=== PATIENT | male | born 1970 | race Caucasian/White ===

== ENCOUNTER 2017-03-16 00:37 | Emergency (ER) | payer MEDICAID ==
[~2017-03-16] VITALS: Ht 190.5 cm; Wt 90.7 kg
[2017-03-16] MEDS ORDERED: KETOROLAC TROMETHAMINE 30 MG INJ IVP ONE (01:15)
[2017-03-16] MEDS ORDERED: IV NORMAL SALINE 1000 ML BAG IV ONE (01:15)
[2017-03-16] MEDS ORDERED: HYDROMORPHONE 1 MG/1 ML DISP.SYRIN IV ONE (01:15)
[2017-03-16] MEDS ORDERED: ONDANSETRON 4 MG/2 ML VIAL IV ONE (01:15)
[2017-03-16 01:27] LABS: BASOPHILS # (AUTO) 0.1 K/uL (0.0-8.0); BASOPHILS % (AUTO) 0.8 % (0.0-2.0); EOSINOPHILS # (AUTO) 0.1 K/uL (0.0-0.7); EOSINOPHILS % (AUTO) 1.2 % (0.0-7.0); HEMATOCRIT 45.9 % (40-50); HEMOGLOBIN 15.5 G/DL (14.0-18.0); LYMPHOCYTES # (AUTO) 2.3 K/UL (0.8-4.8); LYMPHOCYTES % (AUTO) 20.7 % (20.5-51.5); MEAN CORPUSCULAR HEMOGLOBIN 30.1 UUG (27.0-31.0); MEAN CORPUSCULAR HGB CONC 34 g/dL (32.0-37.0); MEAN CORPUSCULAR VOLUME 89.3 FL (82.0-92.0); MONOCYTES # (AUTO) 1.1 K/UL (0.1-1.30); MONOCYTES % (AUTO) 10.2 % (0.0-11.0); NEUTROPHILS # (AUTO) 7.4 K/UL (1.8-8.9); NEUTROPHILS % (AUTO) 67.1 % (38.5-71.5); PLATELET COUNT (AUTO) 259 K/UL (150-450); RED BLOOD CELL COUNT(AUTO) 5.14 MIL/UL (4.7-6.1)
[2017-03-16] MEDS ORDERED: HYDROMORPHONE 1 MG/1 ML DISP.SYRIN ONE (01:30)
[2017-03-16] MEDS ORDERED: KETOROLAC TROMETHAMINE 30 MG INJ ONE (01:30)
[2017-03-16] MEDS ORDERED: ONDANSETRON 4 MG/2 ML VIAL ONE (01:30)
[2017-03-16 01:32] LABS: CREATININE 1.3 mg/dL (0.6-1.3); POTASSIUM 3.5 mmol/L (3.5-5.1)
[2017-03-16 01:38] LABS: BILIRUBIN,DIRECT 0.1 mg/dL (0.0-0.2); BILIRUBIN,TOTAL 0.4 mg/dL (0.2-1.0); TOTAL PROTEIN, SERUM 8.5 g/dL (6.4-8.2)
--- NOTE | 2017-03-16 02:00 | NUR ---
Patient to Radiology for CT scan via gurney.
--- NOTE | 2017-03-16 02:13 | NUR ---
Patient returned from Radiology, resting comfortably in bed with eyes closed.
--- NOTE | 2017-03-16 03:21 | NUR ---
Patient is resting comfortably in bed with eyes closed
--- NOTE | 2017-03-16 04:44 | NUR ---
Patient is resting comfortably in bed with eyes closed
--- NOTE | 2017-03-16 06:15 | NUR ---
Patient given written and verbal discharge instructions. Patient verbalizes understanding of instructions. Patient is ambulatory with steady gait. Refuses offer of fci placement. Patient given list of available shelters in surrounding area.
[2017-03-16 06:16] VITALS: BP 134/84
== END 2017-03-16 06:16 | disposition home or self-care (01) ==
LOC: ER 00:38
DX: N20.0 Calculus of kidney (principal)
CPT/HCPCS: 36415; 83690; 85025; A4663; J1170; J1885; J2405; J7030

== ENCOUNTER 2017-12-04 13:36 | Emergency (ER) | payer MEDICAID ==
[~2017-12-04] VITALS: Ht 190.5 cm; Wt 90.7 kg
[2017-12-04] MEDS ORDERED: ONDANSETRON IV *ER 4 MG/2 ML VIAL IV ONE (14:00)
[2017-12-04] MEDS ORDERED: IV NS 1000 ML 1,000 ML IV ONE (14:00)
[2017-12-04] MEDS ORDERED: PANTOPRAZOLE SODIUM IV 40 MG in IV DEXTROSE 5% 100 ML IV ONE (14:00)
[2017-12-04] MEDS ORDERED: PANTOPRAZOLE SODIUM 40 MG VIAL ONE (14:07)
[2017-12-04] MEDS ORDERED: ONDANSETRON 4 MG/2 ML VIAL ONE (14:07)
--- NOTE | 2017-12-04 14:10 | NUR ---
Proposal Coordinator assumes care- patient tito AOx4, calm & breathing easily, NAD. Blood was drawn by the lab assistant oceanographer, pending U/S scan at this time. Addendum: 12/04/17 at 1419 by SAY Patient is not for U/S but rather for abdominal series x-ray instead per MD morrissey
[2017-12-04 14:17] LABS: BASOPHILS % (AUTO) 0.5 % (0.0-2.0); EOSINOPHILS # (AUTO) 0.2 K/uL (0.0-0.7); EOSINOPHILS % (AUTO) 2.7 % (0.0-7.0); HEMATOCRIT 44.3 % (36.7-47.1); HEMOGLOBIN 15.1 g/dL (12.5-16.3); LYMPHOCYTES # (AUTO) 2.4 K/uL (20.0-40.0); LYMPHOCYTES % (AUTO) 29.9 % (20.5-51.5); MEAN CORPUSCULAR HEMOGLOBIN 30.1 uug (23.8-33.4); MEAN CORPUSCULAR HGB CONC 34 g/dL (32.5-36.3); MEAN CORPUSCULAR VOLUME 88.4 fL (73.0-96.2); MONOCYTES # (AUTO) 1.1 K/uL (2.0-10.0); MONOCYTES % (AUTO) 13.4 % (0.0-11.0); NEUTROPHILS # (AUTO) 4.2 K/uL (1.8-8.9); NEUTROPHILS % (AUTO) 53.5 % (38.5-71.5); PLATELET COUNT (AUTO) 241 K/uL (152-348); RED BLOOD CELL COUNT(AUTO) 5.01 MIL/uL (4.06-5.63); WHITE BLOOD COUNT (AUTO) 7.9 K/uL (3.6-10.2)
[2017-12-04 14:21] LABS: POTASSIUM 3.9 mmol/L (3.5-5.1)
[2017-12-04 14:27] LABS: BILIRUBIN,TOTAL 0.5 mg/dL (0.2-1.0); TOTAL PROTEIN, SERUM 7.4 g/dL (6.4-8.2)
--- NOTE | 2017-12-04 15:41 | NUR ---
biofuels plant construction worker Dagoberto is here (with her global marketing intern) & is now evaluating the patient.
--- NOTE | 2017-12-04 16:27 | NUR ---
MODESTA informed by ED STEPHANIE Huerta that a SW consultation has been requested by Dr. Howell. SW arrived to ED, along with SW internet media planner Zandra. SW and SW internet media planner consulted with STEPHANIE Huerta and Dr. Howell. SW and SW internet media planner then met with patient. SW introduced herself and the SW internet media planner, and asked patient if he was fine with meeting with both the SW and the SW internet media planner. Patient was receptive to this SW, and expressed agreement for both SW and SW internet media planner to be present during the interview. SW assessed patient's current needs. Patient is a 46 year old male who stated that he has been homeless for the past year, and living at [facility]. 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 Patient reported wanting resources on drug detox programs. 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 SW also assessed patient's needs for homeless resources such as shelters, places for meals and showers, food matos, clothing resources. Patient declined resources for shelters, meals, food matos, and showers, however requested information on local [facility] locations for clothing resources. SW provided the following resources to patient: 1) [facility], [address] [place] [address], 2) [facility], [address], [address], [place] [address], 3) [facility], [address] [place] [address], 4) [facility], [address] [place], [address], Patient was receptive to these resources and thanked SW for the information. A copy of the resources provided were filed in patient's ED chart. Dr. Howell informed that the requested resources were provided to patient.
--- NOTE | 2017-12-04 16:33 | NUR ---
IV removed. Catheter intact and site benign. Pressure and 4x4 gauze applied to site. No bleeding noted. Patient discharged to home in stable conditon. Written and verbal after care instructions given to patient. Patient verbalizes understanding of instructions. Patient is ambulatory with steady gait. Refuses offer of residential placement. Patient given list of available shelters in surrounding area.
[2018-02-08] MEDS ORDERED: CEPH-570 PO (11:18)
[2018-02-08] MEDS ORDERED: HYDR-548 PO (11:18)
== END 2017-12-04 16:36 | disposition home or self-care (01) ==
LOC: ER 13:36
DX: K52.9 Noninfective gastroenteritis and colitis, unspecified (principal)
CPT/HCPCS: 36415; 74022; 80053; 85025; 96361; 96374; 96375; 99285; A4663; C9113; J2405; J7030

== ENCOUNTER 2018-02-04 01:54 | Inpatient (IN) | payer MEDICAID ==
[~2018-02-04] VITALS: Ht 190.5 cm; Wt 86.6 kg
[2018-02-04] VITALS (15 sets, daily range): BP systolic 89–105; BP diastolic 48–63
--- NOTE | 2018-02-04 02:24 | NUR ---
Dr. Cowan at bedside for MSE.
[2018-02-04] MEDS ORDERED: KETOROLAC TROMETHAMINE 30 MG INJ IM ONE (02:30)
[2018-02-04] MEDS ORDERED: ONDANSETRON ODT 4 MG TAB.RAPDIS SL ONE (02:30)
[2018-02-04] MEDS ORDERED: ONDANSETRON ODT 4 MG TAB.RAPDIS ONE (02:33)
[2018-02-04] MEDS ORDERED: KETOROLAC TROMETHAMINE 30 MG INJ ONE (02:33)
[2018-02-04 02:53] LABS: BASOPHILS # (AUTO) 0.2 K/uL (0.0-8.0); BASOPHILS % (AUTO) 0.3 % (0.0-2.0); HEMATOCRIT 39.5 % (36.7-47.1); HEMOGLOBIN 13.6 g/dL (12.5-16.3); LYMPHOCYTES % (AUTO) 3.7 % (20.5-51.5); MEAN CORPUSCULAR HEMOGLOBIN 29.9 uug (23.8-33.4); MEAN CORPUSCULAR HGB CONC 35 g/dL (32.5-36.3); MEAN CORPUSCULAR VOLUME 86.5 fL (73.0-96.2); MONOCYTES # (AUTO) 3.1 K/uL (2.0-10.0); MONOCYTES % (AUTO) 5.9 % (0.0-11.0); NEUTROPHILS # (AUTO) 48.3 K/uL (1.8-8.9); NEUTROPHILS % (AUTO) 90.1 % (38.5-71.5); PLATELET COUNT (AUTO) 112 K/uL (152-348); RED BLOOD CELL COUNT(AUTO) 4.57 MIL/uL (4.06-5.63)
[2018-02-04 03:02] LABS: BILIRUBIN,DIRECT 2.4 mg/dL (0.0-0.2); CREATININE 4.4 mg/dL (0.6-1.3); POTASSIUM 5.3 mmol/L (3.5-5.1); TOTAL PROTEIN, SERUM 6.6 g/dL (6.4-8.2)
[2018-02-04 03:04] LABS: WHITE BLOOD COUNT (AUTO) 53.6 K/uL (3.6-10.2)
[2018-02-04] MEDS ORDERED: PIPERACILLIN SODIUM/TAZOBACTAM 3.375 G in IV DEXTROSE 5% 50 ML IV ONE (03:15)
[2018-02-04] MEDS ORDERED: IV NORMAL SALINE 1000 ML BAG IV ONE ×2 (03:15→06:15)
[2018-02-04] MEDS ORDERED: VANCOMYCIN IV 1,000 MG in IV DEXTROSE 5% 250 ML IV ONE (03:15)
[2018-02-04 03:26] LABS: BAND % (MANUAL) 32 % (0-10); LYMPHOCYTES % (MANUAL) 4 % (20-40); METAMYELOCYTES % 2 % (0-1); MONOCYTES % (MANUAL) 4 % (2-10); MYELOCYTES % 1 % (0-0); NEUTROPHILS % (MANUAL) 57 % (42-75)
[2018-02-04] MEDS ORDERED: PIPERACILLIN/TAZOBACTAM/D5W 50 ML IV ONE (03:59)
[2018-02-04] MEDS ORDERED: ASPIRIN 81 MG TAB.CHEW PO ONE (04:00)
[2018-02-04] MEDS ORDERED: ASPIRIN 81 MG TAB.CHEW ONE (04:10)
[2018-02-04] MEDS ORDERED: VANCOMYCIN IV 200 ML ONE (04:12)
--- NOTE | 2018-02-04 04:37 | NUR ---
Assisted pt to bathroom, placed pt on wheelchair.
--- NOTE | 2018-02-04 04:42 | NUR ---
Dr. Cowan on panel call with Cecilia Valentine NP
--- NOTE | 2018-02-04 04:51 | NUR ---
Assisted patient back to bed from bathroom.
[2018-02-04 05:10] LABS: *BILIRUBIN,URIN 1+ (NEGATIVE); *BLOOD, URINE 2+ (NEGATIVE); *CLARITY,URINE CLOUDY (CLEAR); *COLOR,URINE YELLOW (YELLOW); *KETONES,URINE NEGATIVE (NEGATIVE); *PROTEIN,URINE 2+ (NEGATIVE); *UROBILINOGEN,URINE 0.2 E.U./dl (NORMAL); LEUKOCYTE ESTERASE ,URINE NEGATIVE (NEGATIVE); NITRITE, URINE NEGATIVE (NEGATIVE); UGLUCOSE NEGATIVE (NEGATIVE)
[2018-02-04 05:16] LABS: BACTERIA,URINE NONE SEEN /HPF (NONE SEEN); SQUAMOUS EPITHELIAL CELL,UR MODERATE /HPF (NONE SEEN)
--- NOTE | 2018-02-04 05:30 | NUR ---
Pt continues to be hypotensive BP 73/44. Checked multiple sites for BP, still low. notified.
[2018-02-04] MEDS ORDERED: HYDROCORTISONE SOD SUCCINATE 100 MG/2 ML VIAL IV ONE ×2 (05:38→05:45)
--- NOTE | 2018-02-04 05:43 | NUR ---
Administered Solu-cortef. Offered pt food(tuna sandwich, jello, and pudding) and water.
--- NOTE | 2018-02-04 06:10 | NUR ---
Pt continues to be hypotensive after 3rd bag of 1000ml NS. MD notified.
--- NOTE | 2018-02-04 06:25 | NUR ---
Placed pt on Trendelenberg position. Rechecked BP 88/40. notified.
--- NOTE | 2018-02-04 06:33 | NUR ---
Report given to Carol Ann BROWN Medsurg.
--- NOTE | 2018-02-04 06:50 | NUR ---
IV fluid 1000ml NS finished infusing, sepsis reassessment due in 1 hours @0750.
--- NOTE | 2018-02-04 07:10 | NUR ---
SBAR report given to Jp BROWN.
--- NOTE | 2018-02-04 07:25 | NUR ---
received sbar report from tatianna rn, pt resting, monitor shows nsr, po2=98% ON ROOM AIR, FLUIDS COMPLETED PRIOR SHIFT. PRESENTLY PT AWAITING FOR TRANSFER TO FLOOR.
--- NOTE | 2018-02-04 07:45 | NUR ---
sbar report to savanna rn, pt transported via [email or web address] to rm 204. belongings list admit order completed.
--- NOTE | 2018-02-04 08:13 | NUR ---
Patient in room 204 from ER. AAOX4. vitals as follow 97.8 temp. 91/48 SBP. 96% saturation on room air. and heart rate of 94. No c/of pain at this time. patient ambulatory follows commands.
--- NOTE | 2018-02-04 09:00 | NUR ---
Dr. Gibran Esquivel notified of pt's admission.
[2018-02-04] MEDS ORDERED: ONDANSETRON 4 MG/2 ML VIAL IV PRN (09:30)
[2018-02-04] MEDS ORDERED: HYDROCODONE/APAP 5-325MG TABLET PO PRN (09:30)
[2018-02-04] MEDS ORDERED: Z GUARD REMEDY PASTE 57 GM TUBE TOP PRN (09:30)
[2018-02-04] MEDS ORDERED: HYDROCODONE/APAP 10-325 MG TABLET PO PRN (09:30)
[2018-02-04] MEDS ORDERED: ACETAMINOPHEN 325 MG TABLET PO PRN (09:30)
[2018-02-04] MEDS ORDERED: MAGNESIUM HYDROXIDE 30 ML LIQUID UDC PO PRN (09:30)
[2018-02-04] MEDS ORDERED: ZOLPIDEM 5 MG TABLET PO PRN (09:30)
--- NOTE | 2018-02-04 10:15 | NUR ---
Full SBAR report received by STEPHANIE Niño at the bedside.
--- NOTE | 2018-02-04 10:25 | NUR ---
Pt received from 2nd floor med/surg, alert and oriented and verbalized understanding of plan of care. Pt stable and nad noted upon transfer.
[2018-02-04] MEDS: ASPIRIN 325 MG TABLET PO SCH (10:55)
[2018-02-04] MEDS: IV NS 1000 ML 1,000 ML IV SCH ×3 (10:56→19:57)
--- NOTE | 2018-02-04 11:10 | NUR ---
De Dios catheter inserted. Pt stable and nad after insertion of de dios catheter.
--- NOTE | 2018-02-04 11:59 | NUR ---
US tech here at the bedside for 2D Echocardiogram.
[2018-02-04] MEDS ORDERED: PIPERACILLIN SODIUM/TAZOBACTAM 3.375 G in IV DEXTROSE 5% 50 ML IV SCH (12:00)
[2018-02-04 12:13] LABS: *CREATININE,URINE 69.6 mg/dL (30-125); *URINE TOTAL PROTEIN RANDOM 61.1 mg/dL (<150/24HR)
[2018-02-04 12:31] LABS: *BLOOD, URINE 1+ (NEGATIVE); *CLARITY,URINE CLOUDY (CLEAR); *COLOR,URINE YELLOW (YELLOW); *KETONES,URINE NEGATIVE (NEGATIVE); *PROTEIN,URINE 1+ (NEGATIVE); *UROBILINOGEN,URINE 0.2 E.U./dl (NORMAL); LEUKOCYTE ESTERASE ,URINE NEGATIVE (NEGATIVE); NITRITE, URINE NEGATIVE (NEGATIVE); UGLUCOSE NEGATIVE (NEGATIVE)
[2018-02-04 13:06] LABS: *BILIRUBIN,URIN 1+ (NEGATIVE)
[2018-02-04 13:08] LABS: BACTERIA,URINE NONE SEEN /HPF (NONE SEEN); SQUAMOUS EPITHELIAL CELL,UR FEW /HPF (NONE SEEN); URINE AMORPHOUS URATE MODERATE /HPF
[2018-02-04 13:09] LABS: COARSE GRANULAR CASTS,URINE 0-3 /LPF; WAXY CASTS,URINE 0-3 /LPF (NONE SEEN)
[2018-02-04 13:11] LABS: RENAL EPITHELIAL CELLS,URINE MODERATE /LPF (NONE SEEN)
[2018-02-04] MEDS: PIPERACILLIN/TAZOBACTAM/D5W 2.25 G in PREMIXED 1 EACH IV SCH ×2 (13:31→17:21)
--- NOTE | 2018-02-04 13:54 | NUR ---
US tech here to see pt at the bedside for Abdominal US and US kidneys.
[2018-02-04 13:55] LABS: *AMPHETAMINE, URINE POSITIVE (NEGATIVE); *BARBITURATE, URINE NEGATIVE (NEGATIVE); *CANNABINOID, URINE NEGATIVE (NEGATIVE); *COCCAINE, URINE NEGATIVE (NEGATIVE); *OPIATE, URINE POSITIVE (NEGATIVE); *PHENCYCLIDINE SCREEN,URINE NEGATIVE (NEGATIVE)
--- NOTE | 2018-02-04 14:13 | NUR ---
Clinical Pharmacy Note: Vancomycin Pharmacy to Dose Subjective: To start vancomycin in this 47 y/o male for indication of "suspected infection" (elevated wbc, korin) Objective: weight 86 kg height 190 cm BUN 67 Scr 4.4 wbc 53.6 temp 97.4 1gm given ER 02/04 @0415 Assessment/Plan Due to KORIN, will dose per level for now. As one gram given in ER this early am, no further dose for today. Next random ordered with am labs tomorrow. Will check level and redose as appropriate. Will follow
--- NOTE | 2018-02-04 19:30 | NUR ---
rounds made patient in bed sleeping ,easily arousable breathing even and unlabored .verbally responsive alert .patient denies pain when asked and goes back to sleep .call lamb place with in reach and advised to call for help .f/c to bsd .
--- NOTE | 2018-02-04 20:00 | NUR ---
patient seen and examined by SEMICONDUCTOR TESTING GROUP LEADER KALYN ,spoked with patient with regards to plan of care and treatment .
--- NOTE | 2018-02-04 21:00 | NUR ---
oob assisted to bedside commode patient steady of gait able to stand up , had x1 large bm form brownish in color .changed soiled linens and gown . escorted back to bed .
[2018-02-05] VITALS (10 sets, daily range): BP systolic 86–101; BP diastolic 42–62
[2018-02-05] MEDS: PIPERACILLIN/TAZOBACTAM/D5W 2.25 G in PREMIXED 1 EACH IV SCH ×3 (02:43→13:56)
[2018-02-05] MEDS: IV NS 1000 ML 1,000 ML IV SCH (02:44)
[2018-02-05 05:29] LABS: BASOPHILS # (AUTO) 0.1 K/uL (0.0-8.0); BASOPHILS % (AUTO) 0.4 % (0.0-2.0); EOSINOPHILS # (AUTO) 0.2 K/uL (0.0-0.7); EOSINOPHILS % (AUTO) 0.9 % (0.0-7.0); HEMATOCRIT 32.2 % (36.7-47.1); HEMOGLOBIN 10.9 g/dL (12.5-16.3); LYMPHOCYTES # (AUTO) 1.7 K/uL (20.0-40.0); LYMPHOCYTES % (AUTO) 9.9 % (20.5-51.5); MEAN CORPUSCULAR HEMOGLOBIN 29.5 uug (23.8-33.4); MEAN CORPUSCULAR HGB CONC 34 g/dL (32.5-36.3); MEAN CORPUSCULAR VOLUME 86.8 fL (73.0-96.2); MONOCYTES # (AUTO) 0.7 K/uL (2.0-10.0); MONOCYTES % (AUTO) 4.2 % (0.0-11.0); NEUTROPHILS # (AUTO) 14.5 K/uL (1.8-8.9); NEUTROPHILS % (AUTO) 84.6 % (38.5-71.5); PLATELET COUNT (AUTO) 76 K/uL (152-348); RED BLOOD CELL COUNT(AUTO) 3.71 MIL/uL (4.06-5.63); WHITE BLOOD COUNT (AUTO) 17.2 K/uL (3.6-10.2)
[2018-02-05 05:39] LABS: BILIRUBIN,TOTAL 2.3 mg/dL (0.2-1.0); CREATININE 3.2 mg/dL (0.6-1.3); MAGNESIUM 2.1 mg/dL (1.8-2.4); PHOSPHOROUS 4.5 mg/dL (2.5-4.9); TOTAL PROTEIN, SERUM 5.2 g/dL (6.4-8.2); VANCOMYCIN,RANDOM 6.8 ug/mL (18.0-26.0)
[2018-02-05 07:03] LABS: BAND % (MANUAL) 10 % (0-10); EOSINOPHILS % (MANUAL) 1 % (0-8); LYMPHOCYTES % (MANUAL) 10 % (20-40); MONOCYTES % (MANUAL) 2 % (2-10); NEUTROPHILS % (MANUAL) 77 % (42-75)
[2018-02-05] MEDS: ASPIRIN 325 MG TABLET PO SCH (07:53)
--- NOTE | 2018-02-05 08:30 | NUR ---
Dr. Gonzalez here to see pt. Full report given. stated that it was okay to downgrade pt to telemetry.
--- NOTE | 2018-02-05 08:44 | NUR ---
Consent for NM hida scan signed by the pt. Pt alert and oriented during the signing of the consent and is aware of the procedures to be done as explained by Dr. Gonzalez.
[2018-02-05] MEDS ORDERED: VANCOMYCIN IV 1,250 MG in IV DEXTROSE 5% 500 ML IV ONE (09:00)
--- NOTE | 2018-02-05 10:15 | NUR ---
Full SBAR report given to STEPHANIE Huizar at the bedside and pt transferred to room 210-T. All belongings reviewed and brought with the pt. Pt stable and nad noted upon transfer.
--- NOTE | 2018-02-05 10:30 | NUR ---
PATIENT RECEIVED FROM CCU
--- NOTE | 2018-02-05 10:38 | NUR ---
Clinical Pharmacy Note: Vancomycin Pharmacy to Dose Subjective: To continue vancomycin in this 47 y/o male for indication of "suspected infection" (elevated wbc, korin) Objective: weight 86 kg height 190 cm BUN 69 Scr 3.2 wbc 17.2 temp 98.7 random today at 0600: 6.8 Assessment/Plan Due to KORIN, will dose per level for now. One dose of 1250mg given today at 0900. Next random tomorrow with am labs. Will check and redose as needed. Will follow
--- NOTE | 2018-02-05 11:25 | NUR ---
PATIENT WAS TAKEN TO NUCLEAR MED FOR HIDA SCAN
[2018-02-05 12:07] LABS: HEPATITIS B SURFACE AB Non Reactive (.); HEPATITIS B SURFACE AG Negative (Negative)
[2018-02-05] MEDS ORDERED: NICOTINE 21 MG/24HR PATCH TD SCH (13:30)
[2018-02-05] MEDS ORDERED: MORPHINE SULFATE 2 MG/1 ML DISP.SYRIN IV PRN (13:30)
--- NOTE | 2018-02-05 14:41 | NUR ---
PATIENT ASKED THAT GOMES BE REMOVED.
--- NOTE | 2018-02-05 16:36 | NUR ---
PATIENT WAS FOUND TO BE ABSENT FROM HIS ROOM, SECURITY WAS CALLED AND HE WAS OUTSIDE SMOKING. SECURITY WILL BE ESCORTING HIM BACK TO ROOM
--- NOTE | 2018-02-05 16:55 | NUR ---
PATIENT STATED THAT HE WANTS TO GO AMA, IV WAS REMOVED, PATIENT ADVISED OF CONSEQUENCES OF LEAVING WITHOUT CONTINUATION OF ANTIBIOTICS AND NECESSARY TREATMENT. PATIENT UNDERSTOOD AND SIGNED AMA PAPERWORK.
[2018-02-05 19:06] LABS: *ANTI-SCLERODERMA-70 AB <0.2 AI (0.0-0.9); *SJOGREN'S ANTI-SS-A <0.2 AI (0.0-0.9); *SJOGREN'S ANTI-SS-B <0.2 AI (0.0-0.9); *SMITH ANTIBODIES <0.2 AI (0.0-0.9); ANTI-DNA(DS) AB, QN 1 IU/mL (0-9)
[2018-02-06 06:07] LABS: COMPLEMENT, C3 SERUM 105 mg/dL (82-167); COMPLEMENT, C4 SERUM 36 mg/dL (14-44)
[2018-02-08 09:07] LABS: A/G RATIO 0.8 (0.7-1.7); ALBUMIN 2.1 g/dL (2.9-4.4); ALPHA-1-GLOBULIN 0.4 g/dL (0.0-0.4); ALPHA-2-GLOBULIN 0.6 g/dL (0.4-1.0); BETA GLOBULIN 0.9 g/dL (0.7-1.3); GAMMA GLOBULIN 0.9 g/dL (0.4-1.8); GLOBULIN, TOTAL 2.8 g/dL (2.2-3.9); M-SPIKE Not Observed g/dL (Not Observed)
[2018-02-08] MEDS ORDERED: CEPH-570 PO (11:18)
[2018-02-08] MEDS ORDERED: HYDR-548 PO (11:18)
== END 2018-02-05 16:55 | disposition left against medical advice (07) | DRG 720 ==
LOC: ER 01:57 → DOU 07:50 → TELE-TD 08:05 → CCU 10:24 → TELE 02-05 10:20
PROVIDERS: ADMIT Internal Medicine; ATTEND Nurse Practitioner Acute Care
DX: A41.9 Sepsis, unspecified organism (principal); K72.00 Acute and subacute hepatic failure without coma; I21.A1 Myocardial infarction type 2; N17.0 Acute kidney failure with tubular necrosis; R65.21 Severe sepsis with septic shock; E87.1 Hypo-osmolality and hyponatremia; E87.5 Hyperkalemia; G92 Toxic encephalopathy; E44.0 Moderate protein-calorie malnutrition; D64.9 Anemia, unspecified; E88.09 Other disorders of plasma-protein metabolism, not elsewhere classified; Z68.23 Body mass index [BMI] 23.0-23.9, adult; E86.1 Hypovolemia; F15.10 Other stimulant abuse, uncomplicated; F11.10 Opioid abuse, uncomplicated; R93.5 Abnormal findings on diagnostic imaging of other abdominal regions, including retroperitoneum; N13.9 Obstructive and reflux uropathy, unspecified; N05.8 Unspecified nephritic syndrome with other morphologic changes; N10 Acute pyelonephritis; Z59.0 Homelessness
CPT/HCPCS: 36415; 70030-TC; 71045; 76700; 78445; 80307; 83605; 83735; 83970; 84100; 84155; 84156; 84165; 84300; 85025; 85651; 85730; 86038; 86160; 86706; 86803; 87040; 87086; 87340; 87400; 87806; 93005; 93307; A4663; A9537; J1720; J1885; J2270; J2543; J3370; J7030; J7060; Q0162

== ENCOUNTER 2018-02-06 05:26 | Inpatient (IN) | payer MEDICAID ==
[~2018-02-06] VITALS: Ht 190.5 cm; Wt 86.2 kg
--- NOTE | 2018-02-06 07:14 | NUR ---
Nursing report received from STEPHANIE Sánchez, patient still needs blood draw, EKG & x-rays at this time
--- NOTE | 2018-02-06 07:14 | NUR ---
REPORT GIVEN TO STEPHANIE BRYAN.
[2018-02-06 07:54] LABS: POTASSIUM 4.5 mmol/L (3.5-5.1)
[2018-02-06 08:00] LABS: BILIRUBIN,DIRECT 1.7 mg/dL (0.0-0.2); BILIRUBIN,TOTAL 2.2 mg/dL (0.2-1.0); TOTAL PROTEIN, SERUM 5.7 g/dL (6.4-8.2)
[2018-02-06 08:12] LABS: BASOPHILS # (AUTO) 0.1 K/uL (0.0-8.0); EOSINOPHILS # (AUTO) 0.1 K/uL (0.0-0.7); EOSINOPHILS % (AUTO) 0.8 % (0.0-7.0); LYMPHOCYTES # (AUTO) 1.7 K/uL (20.0-40.0); NEUTROPHILS # (AUTO) 6.5 K/uL (1.8-8.9)
[2018-02-06 08:23] LABS: BASOPHILS % (AUTO) 1.2 % (0.0-2.0); HEMOGLOBIN 12.6 g/dL (12.5-16.3); MEAN CORPUSCULAR HGB CONC 34 g/dL (32.5-36.3); MEAN CORPUSCULAR VOLUME 87.4 fL (73.0-96.2); MONOCYTES # (AUTO) 0.6 K/uL (2.0-10.0); MONOCYTES % (AUTO) 6.5 % (0.0-11.0); NEUTROPHILS % (AUTO) 72.5 % (38.5-71.5); RED BLOOD CELL COUNT(AUTO) 4.21 MIL/uL (4.06-5.63); WHITE BLOOD COUNT (AUTO) 8.9 K/uL (3.6-10.2)
[2018-02-06 08:24] LABS: HEMATOCRIT 36.8 % (36.7-47.1); PLATELET COUNT (AUTO) 105 K/uL (152-348)
--- NOTE | 2018-02-06 08:44 | NUR ---
for PICC line insertion per Dr Gonzalez & Dr Caldwell when admitted to floor, patient is resting comfortably on gurney on his right side with eyes closed, calm & cooperative at this time
[2018-02-06 09:02] LABS: BAND % (MANUAL) 1 % (0-10); EOSINOPHILS % (MANUAL) 1 % (0-8); LYMPHOCYTES % (MANUAL) 18 % (20-40); MONOCYTES % (MANUAL) 4 % (2-10); NEUTROPHILS % (MANUAL) 73 % (42-75)
[2018-02-06 09:05] LABS: REACTIVE LYMPHOCYTES 3 % (0-0)
[2018-02-06] MEDS ORDERED: MORPHINE SULFATE 2 MG/1 ML DISP.SYRIN IV PRN (09:15)
[2018-02-06] MEDS ORDERED: ACETAMINOPHEN 325 MG TABLET PO PRN (09:15)
[2018-02-06] MEDS ORDERED: Z GUARD REMEDY PASTE 57 GM TUBE TOP PRN (09:15)
[2018-02-06] MEDS ORDERED: MAGNESIUM HYDROXIDE 30 ML LIQUID UDC PO PRN (09:15)
[2018-02-06] MEDS ORDERED: HYDROCODONE/APAP 5-325MG TABLET PO PRN (09:15)
[2018-02-06 09:20] VITALS: BP 106/59
--- NOTE | 2018-02-06 09:30 | NUR ---
Patient arrived on med/surg floor, oriented to room, took vitals and placed contraband which included cigarettes, rn wellness and marijuana in locker. IV started on patients right forearm gauge 20, patent and flushes with ease.
[2018-02-06] MEDS: IV NS 1000 ML 1,000 ML IV SCH ×2 (10:20→17:22)
[2018-02-06] MEDS: ONDANSETRON 4 MG/2 ML VIAL IV PRN (11:03)
[2018-02-06] MEDS: PIPERACILLIN/TAZOBACTAM/D5W 50 ML IV SCH ×3 (11:03→22:44)
[2018-02-06] MEDS: MORPHINE SULFATE 2 MG/1 ML DISP.SYRIN IV PRN ×5 (11:03→21:47)
[2018-02-06 11:40] VITALS: BP 120/84
--- NOTE | 2018-02-06 12:00 | NUR ---
Patient seen by Dr. Grubbs
[2018-02-06 15:38] VITALS: BP 122/88
--- NOTE | 2018-02-06 16:52 | NUR ---
Consent signed by patient for surgery scheduled tomorrow at 930am.
--- NOTE | 2018-02-06 18:40 | NUR ---
PATIENT HAS BEEN COOPERATIVE WITH CARE, PATIENT CONTINUES TO REQUEST PAIN MEDICINE OR SLEEPING MEDICATION. CURRENTLY PATIENT IS IN BED, TOLERATING CLEAR LIQUIDS, BED IN LOW POSITION, SIDE RAILS UP X2.
--- NOTE | 2018-02-06 19:20 | NUR ---
RECEIVED PT LYING IN BED. AAOX4. DENIES ANY SOB. COMPLAINED OF ABDOMINAL PAIN. WILL GIVE PRN MORPHINE PER ODER. IN NO ACUTE DISTRESS. IV SITE ON RFA INTACT AND PATENT. IVF INFUSING. VS WNL. O2 SAT AT 99% ON RA. SAFETY MEASURE INITIATED AND CALL COTO WITHIN REACH.
[2018-02-06 20:44] VITALS: BP 118/78
--- NOTE | 2018-02-06 21:20 | NUR ---
PT REQUESTING SLEEPING PILL. INFORMED DOCTOR HARPAL AND ORDERED RESTORIL 15MG AT HS PRN. ORDER NOTED AND CARRIED OUT.
[2018-02-06] MEDS: TEMAZEPAM 15 MG CAPSULE PO PRN (21:47)
[2018-02-07] MEDS: IV NS 1000 ML 1,000 ML IV SCH ×2 (01:15→06:05)
--- NOTE | 2018-02-07 01:15 | NUR ---
IV FLUIDS HANGED BY DAY SHIFT NURSE ABY AT 1722 AND STILL INFUSING. WILL CHANGE WHEN BAG IS EMPTY.
[2018-02-07] MEDS: MORPHINE SULFATE 2 MG/1 ML DISP.SYRIN IV PRN ×5 (03:16→19:52)
[2018-02-07 03:56] VITALS: BP 120/82
[2018-02-07] MEDS: PIPERACILLIN/TAZOBACTAM/D5W 50 ML IV SCH ×4 (04:03→23:01)
--- NOTE | 2018-02-07 06:26 | NUR ---
AAOX4. DENIES ANY SOB. GIVEN MORPHINE PRN PER ORDER FOR COMPLAIN OF ABDOMINAL PAIN WITH MINIMAL TO MODERATE EFFECT. IN NO ACUTE DISTRESS. O2 SAT AT 99% ON RA. IV SITE ON RFA REMAINS INTACT AND PATENT. IVF INFUSING. NO ADVERSE REACTION NOTED FROM IV ABX. NPO STATUS POST MIDNIGHT. SAFETY MEASURE MAINTAINED AND CALL COTO WITHIN REACH.
[2018-02-07 07:10] LABS: BASOPHILS # (AUTO) 0.1 K/uL (0.0-8.0); BASOPHILS % (AUTO) 1.3 % (0.0-2.0); EOSINOPHILS # (AUTO) 0.1 K/uL (0.0-0.7); EOSINOPHILS % (AUTO) 0.7 % (0.0-7.0); HEMATOCRIT 36.5 % (36.7-47.1); HEMOGLOBIN 12.6 g/dL (12.5-16.3); LYMPHOCYTES # (AUTO) 3.9 K/uL (20.0-40.0); LYMPHOCYTES % (AUTO) 44.7 % (20.5-51.5); MEAN CORPUSCULAR HEMOGLOBIN 29.7 uug (23.8-33.4); MEAN CORPUSCULAR HGB CONC 35 g/dL (32.5-36.3); MONOCYTES # (AUTO) 0.6 K/uL (2.0-10.0); MONOCYTES % (AUTO) 6.9 % (0.0-11.0); NEUTROPHILS # (AUTO) 4.1 K/uL (1.8-8.9); NEUTROPHILS % (AUTO) 46.4 % (38.5-71.5); PLATELET COUNT (AUTO) 112 K/uL (152-348); RED BLOOD CELL COUNT(AUTO) 4.24 MIL/uL (4.06-5.63); WHITE BLOOD COUNT (AUTO) 8.8 K/uL (3.6-10.2)
[2018-02-07 07:23] LABS: CREATININE 1.7 mg/dL (0.6-1.3); MAGNESIUM 1.7 mg/dL (1.8-2.4); PHOSPHOROUS 3.4 mg/dL (2.5-4.9); POTASSIUM 4.3 mmol/L (3.5-5.1)
[2018-02-07] MEDS ORDERED: BUPIVACAINE 0.25% 30 ML VIAL ONE (08:48)
[2018-02-07] MEDS: NICOTINE 21 MG/24HR PATCH TD SCH (09:00)
--- NOTE | 2018-02-07 09:12 | NUR ---
PT WAS PICKED UP FOR PROCEDURE. PT IS CALM, COOPERATIVE, STABLE, NO SIGNS OF RESPIRATORY DISTRESS, HAS NO JEWELRY.
[2018-02-07] MEDS ORDERED: MIDAZOLAM HCL 2 MG/2 ML VIAL ONE ×2 (09:23→10:32)
[2018-02-07] MEDS ORDERED: ROCURONIUM BROMIDE 50 MG/5 ML VIAL ONE (09:24)
[2018-02-07] MEDS ORDERED: SUCCINYLCHOLINE CHLORIDE 200 MG/10 ML VIAL ONE (09:24)
[2018-02-07 09:58] LABS: LYMPHOCYTES % (MANUAL) 38 % (20-40); MONOCYTES % (MANUAL) 13 % (2-10); MYELOCYTES % 1 % (0-0); NEUTROPHILS % (MANUAL) 46 % (42-75)
[2018-02-07] MEDS: MAGNESIUM SULFATE/D5W 100 ML IV SCH ×2 (10:00→13:05)
[2018-02-07 10:02] LABS: REACTIVE LYMPHOCYTES 2 % (0-0)
[2018-02-07] MEDS ORDERED: FENTANYL CITRATE 100 MCG/2 ML AMPUL ONE (10:27)
[2018-02-07] MEDS ORDERED: HYDROMORPHONE 2 MG/1 ML DISP.SYRIN ONE (10:34)
--- NOTE | 2018-02-07 10:49 | NUR ---
PT STILL AT PROCEDURE, MAGNESIUM BAG WILL BE GIVEN TO PT WHEN HE RETURNS.
[2018-02-07 11:47] VITALS: BP 149/89
[2018-02-07] MEDS ORDERED: LIDOCAINE HCL 2% 20 ML VIAL MC ONE (11:47)
[2018-02-07] MEDS ORDERED: GLYCOPYRROLATE 0.2 MG/ML VIAL MC ONE (11:47)
[2018-02-07] MEDS ORDERED: PROPOFOL 200 MG/20 ML BOTTLE IV ONE (11:47)
[2018-02-07] MEDS ORDERED: NEOSTIGMINE METHYLSULFATE 10 MG/10 ML VIAL IV ONE (11:47)
[2018-02-07] MEDS ORDERED: IV NORMAL SALINE 1000 ML BAG IV ONE (11:47)
[2018-02-07] MEDS ORDERED: ONDANSETRON 4 MG/2 ML VIAL IV ONE (11:47)
[2018-02-07] MEDS ORDERED: DESFLURANE ANESTHESIA GAS 240 ML BOTTLE IH ONE (11:47)
[2018-02-07] MEDS ORDERED: DEXAMETHASONE SOD PHOSPHATE 4 MG INJ IV ONE (11:47)
[2018-02-07 15:30] VITALS: BP 123/79
--- NOTE | 2018-02-07 18:58 | NUR ---
PT SURGERY DONE TODAY 5 INCISIONAL AREAS, NO REDNESS, PUS, HEAT NOTED IN AREAS. PT CALM, COOPERATIVE, GIVEN 2MG OF MORPHINE TO CONTROL PAIN. CLEAR LIQUID DIET, ADVANCE TOLERATED, NO SIGNS RESPIRATORY DISTRESS. CONTINUE MONITOR PT.
[2018-02-07] MEDS: IV NS 1000 ML 1,000 ML IV PRN (19:51)
[2018-02-07 20:00] VITALS: BP 129/91
--- NOTE | 2018-02-07 20:00 | NUR ---
Pt observed to be AAO x 3. No s/s of distress noted at this time. Pt aware of all plan of care. Bed in low, locked position. Call light within reach. Will continue to monitor closely and provide pain management as ordered.
[2018-02-07] MEDS: ONDANSETRON 4 MG/2 ML VIAL IV PRN (20:02)
[2018-02-07] MEDS: TEMAZEPAM 15 MG CAPSULE PO PRN (21:46)
[2018-02-08] MEDS: MORPHINE SULFATE 2 MG/1 ML DISP.SYRIN IV PRN ×3 (01:29→08:21)
[2018-02-08] MEDS: IV NS 1000 ML 1,000 ML IV PRN (04:46)
[2018-02-08] MEDS: PIPERACILLIN/TAZOBACTAM/D5W 50 ML IV SCH ×2 (04:46→10:46)
--- NOTE | 2018-02-08 05:49 | NUR ---
Per pt, he is passing gas and voiding okay. No s/s of distress throughout the night. Pain management provided as ordered. Pt encouraged to ambulate and perform deep breathing. Bed in low, locked position. Call light within reach. Vital signs WNL. IVF running as ordered. Will endorse accordingly.
[2018-02-08 06:00] VITALS: BP 128/89
[2018-02-08 06:32] LABS: BASOPHILS # (AUTO) 0.1 K/uL (0.0-8.0); BASOPHILS % (AUTO) 0.7 % (0.0-2.0); EOSINOPHILS # (AUTO) 0.1 K/uL (0.0-0.7); EOSINOPHILS % (AUTO) 0.5 % (0.0-7.0); HEMOGLOBIN 12.8 g/dL (12.5-16.3); LYMPHOCYTES # (AUTO) 4.8 K/uL (20.0-40.0); LYMPHOCYTES % (AUTO) 45.1 % (20.5-51.5); MEAN CORPUSCULAR HEMOGLOBIN 29.8 uug (23.8-33.4); MEAN CORPUSCULAR HGB CONC 35 g/dL (32.5-36.3); MEAN CORPUSCULAR VOLUME 86.3 fL (73.0-96.2); MONOCYTES # (AUTO) 1.1 K/uL (2.0-10.0); NEUTROPHILS # (AUTO) 4.7 K/uL (1.8-8.9); NEUTROPHILS % (AUTO) 43.7 % (38.5-71.5); PLATELET COUNT (AUTO) 132 K/uL (152-348); RED BLOOD CELL COUNT(AUTO) 4.28 MIL/uL (4.06-5.63); WHITE BLOOD COUNT (AUTO) 10.7 K/uL (3.6-10.2)
[2018-02-08 06:35] LABS: BILIRUBIN,TOTAL 0.9 mg/dL (0.2-1.0); CREATININE 1.4 mg/dL (0.6-1.3); MAGNESIUM 1.5 mg/dL (1.8-2.4); POTASSIUM 3.9 mmol/L (3.5-5.1); TOTAL PROTEIN, SERUM 5.7 g/dL (6.4-8.2)
[2018-02-08 07:56] LABS: BAND % (MANUAL) 1 % (0-10); EOSINOPHILS % (MANUAL) 1 % (0-8); LYMPHOCYTES % (MANUAL) 35 % (20-40); METAMYELOCYTES % 3 % (0-1); MONOCYTES % (MANUAL) 9 % (2-10); MYELOCYTES % 2 % (0-0); NEUTROPHILS % (MANUAL) 45 % (42-75)
[2018-02-08 08:00] LABS: REACTIVE LYMPHOCYTES 4 % (0-0)
[2018-02-08] MEDS: NICOTINE 21 MG/24HR PATCH TD SCH (08:19)
--- NOTE | 2018-02-08 08:25 | NUR ---
PATIENT MEDICATED FOR PAIN IN HIS ABDOMEN ORDERED STATED NOT QUITE HUNGRY AT THIS TIME BUT DRANK THE ENSURE ON HIS TRAY AND REQUESTED FOR ANOTHER ONE THE DIETARY WAS NOTIFIED.ABDOMEN WITH SCOPE SITES ARE INTACT WITH NO DRAINAGE STATED PASSED GAS ONCE BUT ABDOMEN IS HYPOACTIVE ENCOURAGED TO AMBULATE MUCH ABLE AND HE EXPRESSED UNDERSTANDING.IVF REMAIN IN PROGRESS ORDERED.WILL CONTINUE TO OBSERVE.
--- NOTE | 2018-02-08 09:30 | NUR ---
MAGNESSIUM LEVEL IS 1.5 DR ROWAN HERE NOTIFIED AND STATED WILL SEE PATIENT WITH NO NEW ORDERS AT THIS TIME.
[2018-02-08] MEDS ORDERED: HYDR-548 PO (11:18)
[2018-02-08] MEDS ORDERED: CEPH-570 PO (11:18)
[2018-02-08 11:39] VITALS: BP 131/79
--- NOTE | 2018-02-08 11:45 | NUR ---
PATIENT IS NOT IN HIS ROOM HIS HOSPITAL GOWN IS ON HIS BED AND HIS IVF IS DRIPPING ON THE FLOOR.UNABLE TO LOCATE PATIENT ANYWHERE CALLED THE SECURITY DEPARTMENT TO ATTEMPT TO LOCATE HIM.DR ROWAN NOTIFIED STATED THAT THE PATIENT IS DISCHARGED AND THAT HE SPOKE WITH DR PEDRAZA WHO HAS CLEARED PATIENT FOR DISCHARGE.STATED TO JUST GIVE THE PATIENT HIS PRESCRIPTION AND INSTRUCT HIM TO FOLLOW UP WITH DR PEDRAZA IN ONE WEEK.
--- NOTE | 2018-02-08 12:40 | NUR ---
NURSING SUPERINTENDENT TRACK NOTIFIED TO ALERT THE POLICE BECAUSE PATIENT HAS NOT RETURNED AND HAS HIS HEPLOCK INTACT WHEN HE LEFT THE HOSPITAL.
--- NOTE | 2018-02-08 12:58 | NUR ---
CALLED PATIENTS FRIEND CELESTE SPOKE WITH HIM STATED THAT THE PATIENT WAS NOT WITH HIM AND THAT HE WILL LOOK FOR HIM AND WILL CALL US BACK
--- NOTE | 2018-02-08 14:24 | NUR ---
CALL RECEIVED FROM QASIM THE PATIENT STATED THAT HE WAS SORRY THAT HE LEFT WITHOUT INFORMING ANYONE INFORMED HIM THAT I HAVE HIS PRESCRIPTIONS AND HIS PERSONAL BELONGINGS STATED THAT HE WAS ON HIS WAY BACK TO PICK THEM UP.PATIENT STATED THAT HE ALREADY TOOK OUT THE HEPLOCK TOLD HIM THAT I NEEDED TO SEE HIS ARM TO CONFIRM THAT HE DID NOT HAVE AN ACTIVE IV LINE AT THIS TIME AND HE EXPRESSED UNDERSTANDING.
--- NOTE | 2018-02-08 16:00 | NUR ---
THE PATIENT QASIM HERE AND PICKED UP HIS DISCHARGE INSTRUCTIONS AND PRESCRIPTIONS AND ALL HIS PERSONAL BELONGINGS AND HE WAS INSTRUCTED TO CALL DR BREEN OFFICE FOR A FOLLOW UP APPOINTMENT WITHIN THE NEXT ONE WEEK AND HE EXPRESSED UNDERSTANDING PATIENT HAD NO HEPLOCK STATED THAT HE REMOVED IT ALREADY HIS ID BAND WAS REMOVED AT THIS TIME AND PATIENT LEFT.
== END 2018-02-08 16:00 | disposition home or self-care (01) | DRG 710 ==
LOC: ER 05:29 → MED 09:13
PROVIDERS: ADMIT Internal Medicine; ATTEND Internal Medicine
PROC: 0FT44ZZ Resection of Gallbladder, Percutaneous Endoscopic Approach (ICD-10-PCS; principal; 2018-02-07 09:28)
DX: A41.9 Sepsis, unspecified organism (principal); N17.0 Acute kidney failure with tubular necrosis; I21.A1 Myocardial infarction type 2; K81.0 Acute cholecystitis; E44.0 Moderate protein-calorie malnutrition; R65.20 Severe sepsis without septic shock; E87.1 Hypo-osmolality and hyponatremia; F11.10 Opioid abuse, uncomplicated; K76.0 Fatty (change of) liver, not elsewhere classified; E87.5 Hyperkalemia; G92 Toxic encephalopathy; Z68.23 Body mass index [BMI] 23.0-23.9, adult; D64.9 Anemia, unspecified; F17.210 Nicotine dependence, cigarettes, uncomplicated; E86.1 Hypovolemia; B19.20 Unspecified viral hepatitis C without hepatic coma; K52.9 Noninfective gastroenteritis and colitis, unspecified; N20.0 Calculus of kidney
CPT/HCPCS: 36415; 70030-TC; 71045; 83605; 83735; 84100; 85025; 85730; 87040; 93005; A4663; J0330; J1100; J1170; J2250; J2270; J2405; J2543; J2710; J3010; J3475; J3490; J7030

== ENCOUNTER 2018-06-07 16:16 | Inpatient (IN) | payer MEDICAID ==
[~2018-06-07] VITALS: Ht 188 cm; Wt 87.2 kg
[~2018-06-07 16:16] MED LIST: CEPH-570 PO; HYDR-548 PO
--- NOTE | 2018-06-07 16:28 | NUR ---
Dr. Alves here to see pt for MSE.
[2018-06-07] MEDS ORDERED: LORAZEPAM 2 MG/1 ML VIAL ONE (16:44)
[2018-06-07] MEDS ORDERED: LORAZEPAM 2 MG/1 ML VIAL IV ONE (16:45)
[2018-06-07] MEDS ORDERED: IV NORMAL SALINE 1000 ML BAG IV ONE ×3 (16:45→18:15)
[2018-06-07] MEDS ORDERED: CLONIDINE HCL 0.1 MG TABLET PO ONE (16:45)
[2018-06-07 16:48] LABS: BASOPHILS % (AUTO) 0.4 % (0.0-2.0); EOSINOPHILS % (AUTO) 0.2 % (0.0-7.0); HEMATOCRIT 38.8 % (36.7-47.1); HEMOGLOBIN 13.4 g/dL (12.5-16.3); LYMPHOCYTES # (AUTO) 0.5 K/uL (20.0-40.0); LYMPHOCYTES % (AUTO) 6.6 % (20.5-51.5); MEAN CORPUSCULAR HEMOGLOBIN 30.2 uug (23.8-33.4); MEAN CORPUSCULAR HGB CONC 35 g/dL (32.5-36.3); MEAN CORPUSCULAR VOLUME 87.6 fL (73.0-96.2); MONOCYTES % (AUTO) 0.4 % (0.0-11.0); NEUTROPHILS # (AUTO) 7.5 K/uL (1.8-8.9); NEUTROPHILS % (AUTO) 92.4 % (38.5-71.5); PLATELET COUNT (AUTO) 125 K/uL (152-348); RED BLOOD CELL COUNT(AUTO) 4.43 MIL/uL (4.06-5.63); WHITE BLOOD COUNT (AUTO) 8.1 K/uL (3.6-10.2)
--- NOTE | 2018-06-07 16:55 | NUR ---
CODE SEPSIS PROTOCOL WAS CALLED BY DR GALEANO. SEPSIS PROTOCOL WAS STARTED.
[2018-06-07 16:59] LABS: ETHANOL < 3 MG/DL (0-0)
[2018-06-07 17:02] LABS: ALANINE AMINOTRANSFERASE 62 U/L (16-63); ALKALINE PHOSPHATASE 253 U/L (50-136); ASPARTATE AMINOTRANSFERASE 58 U/L (15-37); BILIRUBIN,DIRECT 0.4 mg/dL (0.0-0.2); BILIRUBIN,TOTAL 1.1 mg/dL (0.2-1.0); CARBON DIOXIDE 21 mmol/L (21-32); CHLORIDE 99 mmol/L (98-107); CREATININE 1.1 mg/dL (0.6-1.3); GLUCOSE 106 mg/dL (74-106); POTASSIUM 3.9 mmol/L (3.5-5.1); TOTAL PROTEIN, SERUM 6.8 g/dL (6.4-8.2); UREA NITROGEN, BLOOD 9 mg/dL (7-18)
[2018-06-07] MEDS ORDERED: CLONIDINE HCL 0.1 MG TABLET ONE (17:06)
[2018-06-07 17:07] LABS: ACETAMINOPHEN < 2.0 ug/mL (10-30)
[2018-06-07] MEDS ORDERED: ACETAMINOPHEN ES 500 MG TABLET ONE (17:26)
[2018-06-07] MEDS ORDERED: ACETAMINOPHEN 325 MG TABLET PO ONE (17:45)
[2018-06-07] MEDS ORDERED: VANCOMYCIN IV 1,000 MG in IV DEXTROSE 5% 250 ML IV ONE (18:15)
[2018-06-07] MEDS ORDERED: PIPERACILLIN SODIUM/TAZOBACTAM 3.375 G in IV DEXTROSE 5% 50 ML IV ONE (18:15)
[2018-06-07] MEDS ORDERED: PIPERACILLIN/TAZOBACTAM/D5W 50 ML IV ONE (18:28)
[2018-06-07] MEDS ORDERED: VANCOMYCIN IV 200 ML ONE (19:13)
--- NOTE | 2018-06-07 19:15 | NUR ---
3rd bag of IV NS started on right upper arm 20G.
--- NOTE | 2018-06-07 19:37 | NUR ---
Report given to Tamar BROWN Tele.
--- NOTE | 2018-06-07 19:48 | NUR ---
3rd IV NS bag finished at 1947. Vancomycin to continue infusing in Tele, endorsed to RN.
[2018-06-07 20:00] VITALS: BP 112/80
--- NOTE | 2018-06-07 20:00 | NUR ---
Admitted a 47 years old male with diagnosis of Sepsis. Patient drowsy but easily arouse to verbal and tactile stimuli. AOx4. In no acute distress. Afebrile at this time. IV site on right upper arm intact and patent. Vancomycin IV infusing at this time. Routine admission care done. Plan of care initiated. Safety measure initiated and call lamb within reach.
--- NOTE | 2018-06-07 20:25 | NUR ---
LAB REPORTED LACTIC ACID OF 2.3. LEVELS TRENDING ON EXPECTED DIRECTION.
[2018-06-07] MEDS ORDERED: ONDANSETRON 4 MG/2 ML VIAL IV PRN (20:30)
[2018-06-07] MEDS ORDERED: ZOLPIDEM 5 MG TABLET PO PRN (20:30)
[2018-06-07] MEDS ORDERED: ACETAMINOPHEN 325 MG TABLET PO PRN (20:30)
[2018-06-07] MEDS ORDERED: MAGNESIUM HYDROXIDE 30 ML LIQUID UDC PO PRN (20:30)
[2018-06-07] MEDS ORDERED: IV LACTATED RINGERS SOLUTION 1,000 ML IV PRN (20:30)
[2018-06-07] MEDS ORDERED: Z GUARD REMEDY PASTE 57 GM TUBE TOP PRN (20:30)
--- NOTE | 2018-06-07 20:42 | NUR ---
CLINICAL PHARMACY NOTE:VANCOMYCIN DOSING Request for vancomycin dosing on 47 y/o male 6'3" 200lbs for sepsis Temp 103.7F BUN 9 Scr 1.1 WBC 8.1 lactic acid 2.7 also on Zosyn Received vancomycin 1gm in ER. Continue vancomycin 1500mg ivpb q12h estimate trough 14. Will order trough level prior to 4ht dose. Will continue to monitor
[2018-06-07] MEDS: PIPERACILLIN/TAZOBACTAM/D5W 50 ML IV SCH (23:18)
[2018-06-08] MEDS ORDERED: VANCOMYCIN IV 1,500 MG in IV DEXTROSE 5% 500 ML IV SCH (02:00)
[2018-06-08 04:00] VITALS: BP 117/84
--- NOTE | 2018-06-08 04:00 | NUR ---
PATIENT IV DISLODGE. STARTED NEW IV SITE ON RIGHT FOREARM #[id number]. CONTINUE IVF.
[2018-06-08] MEDS: PIPERACILLIN/TAZOBACTAM/D5W 50 ML IV SCH ×4 (05:09→23:55)
--- NOTE | 2018-06-08 06:12 | NUR ---
AOx4. In no acute distress. Afebrile. IV site on right forearm intact and patent. No adverse reaction noted from IV ABX. Needs attended to and met. Safety measure maintained and call lamb within reach.
[2018-06-08 06:36] LABS: CREATININE 0.9 mg/dL (0.6-1.3); MAGNESIUM 1.7 mg/dL (1.8-2.4); PHOSPHOROUS 2.5 mg/dL (2.5-4.9); POTASSIUM 3.5 mmol/L (3.5-5.1)
[2018-06-08 06:59] LABS: BASOPHILS # (AUTO) 0.1 K/uL (0.0-8.0); LYMPHOCYTES # (AUTO) 1.9 K/uL (20.0-40.0); MONOCYTES # (AUTO) 1.6 K/uL (2.0-10.0)
--- NOTE | 2018-06-08 07:00 | NUR ---
Patient accidentally pulled out his IV. Tried to place a new IV x1 but unsuccessful. Day shift nurse Milagro made aware.
[2018-06-08 07:21] LABS: BASOPHILS % (AUTO) 0.5 % (0.0-2.0); EOSINOPHILS % (AUTO) 0.2 % (0.0-7.0); HEMATOCRIT 36.5 % (36.7-47.1); HEMOGLOBIN 12.5 g/dL (12.5-16.3); LYMPHOCYTES % (AUTO) 14.2 % (20.5-51.5); MEAN CORPUSCULAR HGB CONC 34 g/dL (32.5-36.3); MEAN CORPUSCULAR VOLUME 87.7 fL (73.0-96.2); MONOCYTES % (AUTO) 11.6 % (0.0-11.0); NEUTROPHILS # (AUTO) 9.9 K/uL (1.8-8.9); NEUTROPHILS % (AUTO) 73.5 % (38.5-71.5); PLATELET COUNT (AUTO) 122 K/uL (152-348); RED BLOOD CELL COUNT(AUTO) 4.16 MIL/uL (4.06-5.63)
[2018-06-08 07:22] LABS: WHITE BLOOD COUNT (AUTO) 13.5 K/uL (3.6-10.2)
[2018-06-08 08:35] LABS: *BILIRUBIN,URIN NEGATIVE (NEGATIVE); *BLOOD, URINE 1+ (NEGATIVE); *CLARITY,URINE CLEAR (CLEAR); *COLOR,URINE YELLOW (YELLOW); *KETONES,URINE NEGATIVE (NEGATIVE); *PROTEIN,URINE TRACE (NEGATIVE); LEUKOCYTE ESTERASE ,URINE NEGATIVE (NEGATIVE); NITRITE, URINE NEGATIVE (NEGATIVE); UGLUCOSE NEGATIVE (NEGATIVE)
[2018-06-08 08:46] LABS: BACTERIA,URINE NONE SEEN /HPF (NONE SEEN); SQUAMOUS EPITHELIAL CELL,UR FEW /HPF (NONE SEEN); WBC,URINE 0-3 /HPF (0-3)
[2018-06-08] MEDS: LORAZEPAM 1 MG TABLET PO PRN ×2 (10:27→20:17)
[2018-06-08 11:58] VITALS: BP 108/69
[2018-06-08 12:26] LABS: *AMPHETAMINE, URINE POSITIVE (NEGATIVE); *BARBITURATE, URINE NEGATIVE (NEGATIVE); *CANNABINOID, URINE NEGATIVE (NEGATIVE); *COCCAINE, URINE NEGATIVE (NEGATIVE); *OPIATE, URINE POSITIVE (NEGATIVE); *PHENCYCLIDINE SCREEN,URINE NEGATIVE (NEGATIVE)
[2018-06-08] MEDS: VANCOMYCIN IV 1,500 MG in IV DEXTROSE 5% 500 ML IV SCH (14:18)
--- NOTE | 2018-06-08 14:27 | NUR ---
SW consult ordered. This SW met with patient in his hospital room. Patient was in his hospital bed, with his eyes closed, however responded to SW when SW entered the room, and expressed willingness to meet with SW. Patient is a 47 year old male who came in through the ED yesterday for fever, cold sweats, and body aches. Patient is homeless, and has a long history of daily meth and heroin use. Patient stated that the last time he used drugs was a couple of days ago. Patient stated that he was still having cold sweats and body aches, and stated that "I am just trying to get through this". Patient's responses were short one or two word answers. Patient stated that he has been living on the streets for the past 2 years, and plans on returning back to the streets upon discharge. Patient denied having any friends/family to contact. At this point, patient turned away from the SW and pull the his bed covers over his head. SW asked patient about the interest in a detox/rehab program that he had expressed to the physician, and patient acknowledged that he had expressed interest. SW asked patient if he wanted SW to provide him with resources, and patient agreed. SW ended the interview at this time. SW to provide patient with resources. MODESTA then met with Dr. Reina and case management specialist Brinda and discussed above with them and what the SW plan was. All parties were in agreement.
--- NOTE | 2018-06-08 14:43 | NUR ---
Clinical pharmacy note-Vancomycin dosing per pharmacy Subjective: To continue Vancomycin dosing on this patient for sepsis Objective: BUN 8 Scr 0.9 WBC 13.5 Temp 99.1 Ht 187.96mc Wt 87.175kg Assessment/Plan: Since renal function is improved(scr 0.9 vs 1.1) and WBC went up(13.5 vs 8.1), will increase dose to 1500mg IV every 10hrs(first dose today at 1400) and draw trough by 4th dose(not ordered yet) for expected trough around 15. Will follow level for further dosing and monitor daily.
--- NOTE | 2018-06-08 14:50 | NUR ---
MODESTA contacted the following substance abuse detox/rehab programs to inquire about the referral process: [facility] and [facility]. 2:25pm: MODESTA spoke with Enid at [facility] [phone]. Enid stated that SW did not need to submit any referral information for the patient, instead the patient should call them directly in order for them to coordinate the services directly with the patient based on his needs. MODESTA expressed understanding. 2:40pm: MODESTA then called [facility] [phone] and spoke with Chinedu. Chinedu stated that SW did not need to submit any referral information for the patient, but instead the patient should call them directly in order for them to coordinate the services directly with the patient based on his needs. Both programs accept Medi-sa[employer]. SW to provide patient with contact information for both programs: 1) [facility]: [address] [place] [address], 2) [facility]: [address] [place] [address],
[2018-06-08] MEDS ORDERED: MAGNESIUM SULFATE/D5W 100 ML IV SCH (15:00)
[2018-06-08] MEDS ORDERED: MAGNESIUM OXIDE 400 MG TABLET PO ONE (15:15)
[2018-06-08 16:10] VITALS: BP 133/77
[2018-06-08 20:00] VITALS: BP 149/89
[2018-06-08] MEDS: LACTOBACILLUS RHAMNOSUS GG 1 EACH CAPSULE PO SCH (20:17)
[2018-06-09] MEDS: VANCOMYCIN IV 1,500 MG in IV DEXTROSE 5% 500 ML IV SCH (00:44)
[2018-06-09] MEDS: LORAZEPAM 1 MG TABLET PO PRN ×3 (01:36→11:34)
--- NOTE | 2018-06-09 01:39 | NUR ---
PT STATED AMBIEN WAS NOT EFFECTIVE, AND REQUESTED FOR ATIVAN PO. WILL MONITOR.
[2018-06-09 04:00] VITALS: BP 140/92
[2018-06-09] MEDS: PIPERACILLIN/TAZOBACTAM/D5W 50 ML IV SCH ×2 (05:54→11:38)
--- NOTE | 2018-06-09 06:19 | NUR ---
PT STATED NOT SLEEPING LAST NIGHT DESPITE AMBIEN AND ATIVAN BEING GIVEN. CONTINUE ON ATB IV. NO A/E NOTED.
[2018-06-09 06:48] LABS: CREATININE 0.8 mg/dL (0.6-1.3); MAGNESIUM 1.8 mg/dL (1.8-2.4); PHOSPHOROUS 2.1 mg/dL (2.5-4.9); POTASSIUM 3.2 mmol/L (3.5-5.1)
[2018-06-09 07:11] LABS: BASOPHILS # (AUTO) 0.1 K/uL (0.0-8.0); BASOPHILS % (AUTO) 0.6 % (0.0-2.0); EOSINOPHILS # (AUTO) 0.1 K/uL (0.0-0.7); EOSINOPHILS % (AUTO) 0.5 % (0.0-7.0); HEMATOCRIT 38.6 % (36.7-47.1); HEMOGLOBIN 13.3 g/dL (12.5-16.3); LYMPHOCYTES # (AUTO) 2.1 K/uL (20.0-40.0); LYMPHOCYTES % (AUTO) 15.6 % (20.5-51.5); MEAN CORPUSCULAR HEMOGLOBIN 29.5 uug (23.8-33.4); MEAN CORPUSCULAR HGB CONC 34 g/dL (32.5-36.3); MEAN CORPUSCULAR VOLUME 85.7 fL (73.0-96.2); MONOCYTES # (AUTO) 1.7 K/uL (2.0-10.0); MONOCYTES % (AUTO) 12.7 % (0.0-11.0); NEUTROPHILS # (AUTO) 9.4 K/uL (1.8-8.9); NEUTROPHILS % (AUTO) 70.6 % (38.5-71.5); PLATELET COUNT (AUTO) 168 K/uL (152-348); RED BLOOD CELL COUNT(AUTO) 4.51 MIL/uL (4.06-5.63); WHITE BLOOD COUNT (AUTO) 13.3 K/uL (3.6-10.2)
--- NOTE | 2018-06-09 07:30 | NUR ---
PT RECEIVED IN BED SLEEPING ,V/S ARE STABLE ,PT IS AXOX4,CALL LIGHT WITH IN REACH
[2018-06-09 07:42] LABS: BAND % (MANUAL) 2 % (0-10); LYMPHOCYTES % (MANUAL) 12 % (20-40); MONOCYTES % (MANUAL) 9 % (2-10); NEUTROPHILS % (MANUAL) 77 % (42-75)
[2018-06-09] MEDS: LACTOBACILLUS RHAMNOSUS GG 1 EACH CAPSULE PO SCH (08:02)
[2018-06-09] MEDS ORDERED: VANCOMYCIN IV 1,500 MG in IV DEXTROSE 5% 500 ML IV SCH (09:00)
[2018-06-09] MEDS ORDERED: POTASSIUM PHOSPHATE MM 5 MMOL in IV DEXTROSE 5% 100 ML IV SCH (11:00)
[2018-06-09 11:20] VITALS: BP 110/68
--- NOTE | 2018-06-09 11:51 | NUR ---
Clinical pharmacy note-Vancomycin dosing per pharmacy Subjective: To continue Vancomycin dosing on this 47 yo male patient for Possible sepsis, ? transient bacteremia from IVDA Rule out endocarditis Objective: BUN 8 Scr 0.8 WBC 13.3 Temp 98.7 Ht 187.96 cm Wt 87.175kg Assessment/Plan: Since srcr decreased, changed vanco dose form 1500mg IV every 10hrs to 1500mg IVPB q9h for predicted vanco trough level of 15.7 mcg/ml at steady state. 2nd dose today at 090. Plan to draw trough by 4th dose (ordered for 06/10 at 1130).Will follow the level for further dosing and monitor daily.
--- NOTE | 2018-06-09 12:01 | NUR ---
PT PULLED OUT HIS HEPLOCK AND CAME OUT OF HIS ROOM AND SAID HE IS LEAVING ,HE NEEDS TO GO ,ALL THE CONTRAINDICATIONS AND SADE EFFECT EXPLAINED TO THE PT ,PT REFUSED TO STAY AND PUT HIS CLOTHES ON AND LEAVE THE HOSPITAL VIA WALKING MD AND CHARGE NURSE AND NURSING BELL VALET MADE AWARE
--- NOTE | 2018-06-09 14:11 | NUR ---
9:30am: OPAL, Dagoberto Brown, along with MODESTA student product marketing intern, spoke with patient in his room this morning as a follow-up to yesterday's meeting with the patient (see previous SS notes) and to provide him with the resources for detox/rehab programs as patient requested. Patient was in his hospital bed with his blanket pulled group home over his head. Patient was receptive to meeting with this SW and MODESTA student product marketing intern. Patient expressed that he did not sleep well the previous night and continues to have body aches and chills. Patient also presented to be anxious and restless. SW revisited the conversation from yesterday regarding detox/rehab programs and patient expressed interest in still getting information on these programs. PROTOHISTORIAN provided information on rehab locations around the [facility] that will accept his insurance: [facility] at [address] [place] [address] and [facility] at [address] [place] [address]. MODESTA informed the patient that he would need to call the centers once he is discharged from the hospital and they will further assist him with program enrollment. Patient agreed and expressed understanding. PROTOHISTORIAN asked if patient needed any other resources for food, showers and/or shelters. Patient expressed satisfaction with the detox/rehab resources provided. Patient then expressed interest in getting information on locations for food and showers, however declined resources for shelters. PROTOHISTORIAN will provide patient with homeless resources around the [facility] that include locations for hot meals and showers.
--- NOTE | 2018-06-09 14:24 | NUR ---
2:00pm: This SW and MODESTA student sports intern Lila went to patient's room to provide him with the additional resources he had requested during this morning's meeting, which included a list of places in the [facility] where patient can go to take showers and get hot meals. Patient was not in his room, and SW and MODESTA student sports intern were informed by nursing that patient had left AMA during lunch time. Unable to provide the requested resource. No further interventions needed at this time.
== END 2018-06-09 11:56 | disposition left against medical advice (07) | DRG 720 ==
LOC: ER 16:18 → TELE 19:48 → MED 22:23
PROVIDERS: ADMIT Nurse Practitioner Acute Care; ATTEND Nurse Practitioner Acute Care
DX: A41.9 Sepsis, unspecified organism (principal); G92 Toxic encephalopathy; B19.20 Unspecified viral hepatitis C without hepatic coma; D72.829 Elevated white blood cell count, unspecified; I25.2 Old myocardial infarction; Z87.442 Personal history of urinary calculi; N20.0 Calculus of kidney; L30.9 Dermatitis, unspecified; F19.10 Other psychoactive substance abuse, uncomplicated; Z90.49 Acquired absence of other specified parts of digestive tract; Z71.6 Tobacco abuse counseling; F17.210 Nicotine dependence, cigarettes, uncomplicated; I44.5 Left posterior fascicular block; F15.10 Other stimulant abuse, uncomplicated; F11.10 Opioid abuse, uncomplicated
CPT/HCPCS: 36415; 70030-TC; 71045; 80307; 83605; 83735; 84100; 85025; 85730; 87040; 87086; 87400; 93005; 93307; A4663; A9150; G0480; G0480-TC; J2060; J2543; J3370; J3490; J7030; J7060; J7120

== ENCOUNTER 2019-06-25 13:35 | Inpatient (IN) | payer MEDICAID ==
[~2019-06-25] VITALS: Ht 190.5 cm; Wt 87.5 kg
[2019-06-25] MEDS ORDERED: LIDOCAINE 0.5% MPF 50 ML VIAL INJ ONE (14:15)
[2019-06-25] MEDS ORDERED: PIPERACILLIN SODIUM/TAZOBACTAM 3.375 G in IV DEXTROSE 5% 50 ML IV ONE (14:45)
[2019-06-25] MEDS ORDERED: METHADONE HCL 10 MG TABLET PO ONE (14:45)
[2019-06-25] MEDS ORDERED: VANCOMYCIN IV 1,000 MG in IV DEXTROSE 5% 250 ML IV ONE (14:45)
[2019-06-25] MEDS ORDERED: IV NS 1000 ML 1,000 ML IV ONE (15:00)
[2019-06-25 15:07] LABS: BASOPHILS # (AUTO) 0.1 K/uL (0.0-8.0); BASOPHILS % (AUTO) 0.5 % (0.0-2.0); EOSINOPHILS # (AUTO) 0.2 K/uL (0.0-0.7); EOSINOPHILS % (AUTO) 1.5 % (0.0-7.0); HEMATOCRIT 41.8 % (36.7-47.1); LYMPHOCYTES # (AUTO) 2.6 K/uL (20.0-40.0); LYMPHOCYTES % (AUTO) 20.8 % (20.5-51.5); MEAN CORPUSCULAR HEMOGLOBIN 29.2 uug (23.8-33.4); MEAN CORPUSCULAR HGB CONC 33 g/dL (32.5-36.3); MEAN CORPUSCULAR VOLUME 87.4 fL (73.0-96.2); MONOCYTES # (AUTO) 1.1 K/uL (2.0-10.0); MONOCYTES % (AUTO) 9.2 % (0.0-11.0); NEUTROPHILS # (AUTO) 8.4 K/uL (1.8-8.9); PLATELET COUNT (AUTO) 307 K/uL (152-348); RED BLOOD CELL COUNT(AUTO) 4.79 MIL/uL (4.06-5.63); WHITE BLOOD COUNT (AUTO) 12.4 K/uL (3.6-10.2)
[2019-06-25 15:11] LABS: POTASSIUM 4.2 mmol/L (3.5-5.1)
[2019-06-25] MEDS ORDERED: VANCOMYCIN IV 200 ML ONE (15:12)
[2019-06-25 15:16] LABS: BILIRUBIN,TOTAL 0.2 mg/dL (0.2-1.0); TOTAL PROTEIN, SERUM 8.2 g/dL (6.4-8.2)
--- NOTE | 2019-06-25 16:43 | NUR ---
PT WAS EVALUATED BY DR GEORGE. REPORT WAS GIVEN TO RN M/S. PT WAS TRANSFERED TO ROOM #305.
--- NOTE | 2019-06-25 19:04 | NUR ---
Patient received from ER with complaints of swelling and pain on right hand ;Patient diagnosed with right hand abscess and cellulitis ; patient in stable condition with no sings of distress; mental status of anox4 ; patient able to ambulate ; Patient status he is homeless and has substance abuse problems with heroine and meth; patient stated he used meth yesterday. Report given to oncoming nurse.
[2019-06-25] MEDS ORDERED: IV 1/2NS 1000 ML 1,000 ML IV PRN (19:42)
[2019-06-25] MEDS ORDERED: ACETAMINOPHEN 325 MG TABLET PO PRN (19:45)
[2019-06-25] MEDS ORDERED: MAGNESIUM HYDROXIDE 30 ML LIQUID UDC PO PRN (19:45)
[2019-06-25] MEDS ORDERED: HYDROCODONE/APAP 10-325 MG TABLET PO PRN (19:45)
[2019-06-25] MEDS ORDERED: ONDANSETRON 4 MG/2 ML VIAL IV PRN (19:45)
[2019-06-25] MEDS ORDERED: HYDROCODONE/APAP 5-325MG TABLET PO PRN (19:45)
[2019-06-25] MEDS ORDERED: Z GUARD REMEDY PASTE 57 GM TUBE TOP PRN (19:45)
[2019-06-25] MEDS ORDERED: ZOLPIDEM 5 MG TABLET PO PRN (19:45)
[2019-06-25] MEDS ORDERED: PIPERACILLIN/TAZO 4.5 GM VIAL IV ONE (20:49)
--- NOTE | 2019-06-25 21:05 | NUR ---
Patient is asking for methadone, threatens to leave AMA. Spoke with Dr. Wolff, he did not order additional doses for the night, advised to call methadone clinic in the AM to verify the dose. patient was given sandwiches and pudding. Ate well, fell asleep.
[2019-06-25] MEDS: PIPERACILLIN SODIUM/TAZOBACTAM 4.5 G in IV DEXTROSE 5% 50 ML IV SCH (22:44)
[2019-06-26] MEDS ORDERED: VANCOMYCIN IV 1 G in PREMIXED 0 EACH IV SCH (04:00)
[2019-06-26] MEDS ORDERED: VANCOMYCIN 1000 MG VIAL ONE (04:40)
[2019-06-26 05:22] VITALS: BP 128/79
--- NOTE | 2019-06-26 06:10 | NUR ---
Patient slept well at night after 5mg PM dose of [place]. Used urinal twice. Comfort and safety provided.
[2019-06-26 06:21] LABS: BASOPHILS # (AUTO) 0.1 K/uL (0.0-8.0); BASOPHILS % (AUTO) 0.5 % (0.0-2.0); EOSINOPHILS # (AUTO) 0.2 K/uL (0.0-0.7); EOSINOPHILS % (AUTO) 2.2 % (0.0-7.0); HEMATOCRIT 38.2 % (36.7-47.1); HEMOGLOBIN 12.8 g/dL (12.5-16.3); LYMPHOCYTES # (AUTO) 2.3 K/uL (20.0-40.0); LYMPHOCYTES % (AUTO) 23.2 % (20.5-51.5); MEAN CORPUSCULAR HEMOGLOBIN 29.8 uug (23.8-33.4); MEAN CORPUSCULAR HGB CONC 34 g/dL (32.5-36.3); MEAN CORPUSCULAR VOLUME 88.6 fL (73.0-96.2); MONOCYTES # (AUTO) 0.9 K/uL (2.0-10.0); MONOCYTES % (AUTO) 9.1 % (0.0-11.0); NEUTROPHILS # (AUTO) 6.6 K/uL (1.8-8.9); PLATELET COUNT (AUTO) 239 K/uL (152-348); RED BLOOD CELL COUNT(AUTO) 4.32 MIL/uL (4.06-5.63); WHITE BLOOD COUNT (AUTO) 10.1 K/uL (3.6-10.2)
[2019-06-26 06:40] LABS: MAGNESIUM 1.8 mg/dL (1.8-2.4); PHOSPHOROUS 3.7 mg/dL (2.5-4.9); POTASSIUM 4.2 mmol/L (3.5-5.1)
[2019-06-26] MEDS: PIPERACILLIN SODIUM/TAZOBACTAM 4.5 G in IV DEXTROSE 5% 50 ML IV SCH (06:40)
[2019-06-26 06:54] LABS: THYROID STIMULATING HORMONE 1.381 mIU/mL (0.358-3.740)
--- NOTE | 2019-06-26 07:30 | NUR ---
Patient calm and comfortable resting in bed with no signs of distress; patient will continue to be monitored.
--- NOTE | 2019-06-26 10:22 | NUR ---
Patient left AMA ; patient educated on needing antibiotic therapy for abscess on hand ; patient said he needed his meth and he could not wait any longer; patient signed AMA paperwork; IV removed ; belongings taken with patient.
[2019-06-26 11:00] VITALS: BP 112/75
[2019-06-26] MEDS ORDERED: VANCOMYCIN IV 1,000 MG in IV DEXTROSE 5% 250 ML IV SCH (17:00)
== END 2019-06-26 10:22 | disposition left against medical advice (07) | DRG 383 ==
LOC: ER 13:35 → MEDSURG3 15:16
DX: L03.113 Cellulitis of right upper limb (principal); B19.20 Unspecified viral hepatitis C without hepatic coma; S61.431S Puncture wound without foreign body of right hand, sequela; X78.8XXS Intentional self-harm by other sharp object, sequela; F11.10 Opioid abuse, uncomplicated; N20.0 Calculus of kidney; Z90.49 Acquired absence of other specified parts of digestive tract; F17.210 Nicotine dependence, cigarettes, uncomplicated; L30.9 Dermatitis, unspecified; I25.2 Old myocardial infarction
CPT/HCPCS: 36415; 73130; 83605; 83735; 84100; 84443; 85025; 85651; 87040; A4663; G0378; J2543; J3370; J3490; J7030; J7060

== ENCOUNTER 2021-02-19 13:40 | Emergency (ER) | payer MEDICAID, OTHER ==
[~2021-02-19] VITALS: Ht 190.5 cm; Wt 95.3 kg
[2021-02-19] MEDS: LIDOCAINE HCL 2% 20 ML VIAL TP ONE (14:39)
== END 2021-02-19 14:45 | disposition home or self-care (01) ==
LOC: ER 13:40
DX: L02.01 Cutaneous abscess of face (principal); I25.2 Old myocardial infarction; Z90.49 Acquired absence of other specified parts of digestive tract; F17.200 Nicotine dependence, unspecified, uncomplicated; Z86.19 Personal history of other infectious and parasitic diseases
CPT/HCPCS: 10060; 99283; J3490; A4663